=== PATIENT | male | born 1975 | race Two or more races ===

== ENCOUNTER → 2020-08-31 | Outpatient (CLI) | payer OTHER | END | disposition home or self-care (01) | LOC: TOM 08:35 | PROVIDERS: ATTEND General Practice | DX: I89.8 Other specified noninfective disorders of lymphatic vessels and lymph nodes (principal); R05 Cough; Z11.9 Encounter for screening for infectious and parasitic diseases, unspecified; Z13.83 Encounter for screening for respiratory disorder NEC ==